=== PATIENT | female | born 1970 | race African-American/Black ===

== ENCOUNTER 2017-03-19 12:04 | Emergency (ER) | payer OTHER | END 2017-03-19 13:31 | disposition home or self-care (01) | LOC: SCSER 12:04 | DX: E86.0 Dehydration (principal); I10 Essential (primary) hypertension; J45.909 Unspecified asthma, uncomplicated; Z79.899 Other long term (current) drug therapy | CPT/HCPCS: 36415; 80048; 82306; 82607; 82728; 84425; 85027; 96360 ==

== ENCOUNTER 2017-06-16 08:24 | Inpatient (IN) | payer OTHER ==
[2017-06-16] MEDS ORDERED: Metoclopramide HCl 10 MG/2 ML VIAL ONE (09:13)
[2017-06-16] MEDS ORDERED: diphenhydrAMINE 50 MG/ML VIAL ONE (09:13)
[2017-06-16] MEDS ORDERED: Ketorolac Tromethamine 30 MG/ML VIAL ONE (09:13)
[2017-06-16 09:32] LABS: #Eosinphils 0.1 thou/uL (0.0-0.7); #Monocytes 0.4 thou/uL (0.11-0.59); #Neutrophils 2.2 thou/uL (1.40-6.50); %Basophils 0.9 % (0.0-1.0); %Eosinophils 2.9 % (0.0-10.0); %Monocytes 9.9 % (0.0-10.0); %Neutrophils 60.3 % (42.0-75.0); Hemoglobin 11.9 g/dL (12.0-16.0); Mean Corpuscular HGB CONC 31.9 g/dL (32.0-36.0); Mean Corpuscular Hemoglobin 29.4 pg (27.0-31.0); Mean Corpuscular Volume 92.1 fl (81.0-99.0); Mean Platelet Volume 7.4 fL (7.4-10.4); Platelet Count 272 thou/uL (130-400); RBC Distribution Width 12.2 % (11.5-14.5); Red Blood Cell (RBC) Count 4.04 mill/uL (4.20-5.40); White Blood Cell (WBC) Count 3.7 thou/uL (4.8-10.8)
[2017-06-16 09:53] LABS: ALT (SGPT) 13 U/L (8-55); AST (SGOT) 14 U/L (5-34); Albumin 3.8 g/dL (3.5-5.0); Alkaline Phosphatase 73 U/L (40-150); Anion Gap 7 mmol/L (10-20); BUN (Urea Nitrogen) 10 mg/dL (7.0-18.7); Bilirubin, Total 0.3 mg/dL (0.2-1.2); Calc. Creatinine Clearance 0 mL/min (70-130); Calcium 8.9 mg/dL (7.8-10.44); Carbon Dioxide 26 mmol/L (22-29); Chloride 111 mmol/L (98-107); Estimated GFR-MDRD Greater than 90; Globulin 2.6 g/dL (2.4-3.5); Glucose 106 mg/dL (70-105); Potassium 3.2 mmol/L (3.5-5.1); Protein, Total 6.4 g/dL (6.0-8.3); Sodium 141 mmol/L (136-145)
[2017-06-16 09:58] LABS: CKMB 1.1 ng/mL (0-6.6); Troponin I 0.011 ng/mL (< 0.028)
--- NOTE | 2017-06-16 10:07 | CT ---
CT BRAIN WITHOUT CONTRAST: Date: 06/16/17 HISTORY: Syncope. FINDINGS: Comparison made with exam of 10/23/16. No evidence of acute infarct, hemorrhage, midline shift, or abnormal extra-axial fluid collections ar e seen. The ventricular size is normal and the basilar cisterns are patent. The bony calvarium is int act. There is mucosal disease in the paranasal sinuses. IMPRESSION: No CT evidence of acute intracranial process. POS: [facility]
[2017-06-16] MEDS ORDERED: Potassium Chloride 20 MEQ TAB ONE (10:20)
[2017-06-16] MEDS ORDERED: Diazepam 5 MG TAB ONE (11:05)
[2017-06-16 13:26] VITALS: BMI 23.6
[2017-06-16] MEDS: Acetaminophen 325 MG TAB PO PRN (16:54)
[2017-06-16] MEDS ORDERED: UREA TOP SCH (18:00)
[2017-06-16] MEDS ORDERED: Potassium Chloride 20 MEQ TAB PO SCH (18:30)
[2017-06-16 18:41] LABS: Troponin I 0.016 ng/mL (< 0.028)
--- NOTE | 2017-06-16 19:17 | HP ---
CHIEF COMPLAINT: Syncope. PRIMARY CARE PHYSICIAN: Dr. Omi Singletary. HISTORY OF PRESENT ILLNESS: The patient is a very pleasant 47-year-old female with a history of rosa pernell bypass with significant complication, who presented to the ER with complaints of syncopal episode . The patient was brought in by EMS. The patient reports that she had a migraine for a while since the weekend and has been taking Aleve for pain. The patient said that she went to work; however, was not feeling well. The patient states that she does have nausea, but denies any vomiting or diarrhea or chest pain or chest pressure. She denies any blurry vision. The patient stated that next thing she remembers she was on the ground with everybody standing around her. The patient states that when she woke up, she knew where she was and she knew who people were. The patient states that this has never happened to her before. Denies any recent sick contacts. The patient states that she does hav e been having migraines for the past few years. She states normally in a month she will get 2-3 bout s of migraines and normally takes Aleve and sleeps, which relieves her migraines. The patient states that her headache is all around her head. She feels like a pressure-like sensation. Denies any nec k pain. Denies any nuchal rigidity. She states that her pain is sharp. PAST MEDICAL HISTORY: She has a history of hypertension and Munoz esophagitis. PAST SURGICAL HISTORY: She has had a gastric sleeve to Thad-en-Y. ALLERGIES: She has no known drug allergies. SOCIAL HISTORY: She denies any smoking or alcohol use. REVIEW OF SYSTEMS: The patient does complain of nausea and some pain; however, the remaining review of systems was negative. PHYSICAL EXAMINATION: VITAL SIGNS: Include 98.4, 69, 16, 100% on room air, 141/97. GENERAL: The patient is in the stretcher, is awake, however, appears drowsy. She states that she ju st got some medication. HEENT: Normocephalic, atraumatic. No lymphadenopathy. Pupils are equal, reactive to light. She land s no pain around her temporal area. CARDIOVASCULAR: S1, S2 present. No murmurs, rubs or gallops. LUNGS: Clear to auscultation. ABDOMEN: Soft. She does have significant pain on her left upper and lower quadrant. EXTREMITIES: No edema. MEDICATIONS: The patient states that she takes amlodipine 5 mg b.i.d., thiamine 1 pill daily, vitami n D3 daily, and urea 1 unit topical. LABORATORY DATA: Hematology is 3.7, hemoglobin of 11.9, hematocrit of 37.2, platelets of 272. Chemi stry: Sodium of 141, potassium of 3.2, chloride of 111, creatinine 0.8. LFTs were normal. Initial troponins were negative. ASSESSMENT AND PLAN: The patient is a very pleasant 47-year-old female who initially presented to [facility] for syncope. 1. Syncope, could be neurogenic versus cardiogenic. We will try and see if we can get orthostatics on this patient. We will get an echocardiogram. I will consult Neurology, could be a syncopal episo de due to her migraines. Her EKG did not happen to have any acute process noted. Labs did not indic ate any abnormality except for low potassium. We will continue to monitor. 2. Hypertension. We will continue her Norvasc. 3. We will add SCDs for DVT prophylaxis.
[2017-06-16] MEDS: Amlodipine 5 MG TAB PO SCH (20:44)
[2017-06-16] MEDS: Famotidine/PF 20 mg/2ml Vial SLOW IVP SCH (20:44)
--- NOTE | 2017-06-16 20:52 | CON ---
DATE OF CONSULTATION: 06/16/2017 REFERRING PHYSICIAN: Tracy Hyatt MD REASON FOR CONSULTATION: Migraine and syncope. HISTORY OF PRESENT ILLNESS: Ms. Mejia is a pleasant 47-year-old - [place] female who has been consulted for evaluation of migraine and syncope. History is obtained from the patient who is a very good historian. The patient reports that she has longstanding history of migraine headaches. She has migraine flareup 1 to 3 times per month. She notes that on Friday she started having headache that was located in the holocranial region. It was pressure in quality, moderate to severe intensity. She had nausea, photophobia , phonophobia, blurry vision, dizziness, and lightheadedness with the headaches. As these headaches were not improving, she decided to present to the [facility] for further evaluation. She states that currently she does not take any medications for breakthrough headaches. She has also never been placed on any preventive therapy for migraine headaches. PAST MEDICAL HISTORY: Significant for hypertension, Munoz's esophagus and migraine headaches, intractable. PAST SURGICAL HISTORY: Significant for gastric sleeve surgery. SOCIAL HISTORY: She denies smoking, alcohol use, or illicit drug use. CURRENT MEDICATIONS: Please review MAR. ALLERGIES: No known drug allergies. REVIEW OF SYSTEMS: As mentioned above in the HPI, otherwise negative. PHYSICAL EXAMINATION: VITAL SIGNS: Blood pressure 141/87, pulse of 90, temperature of 98.5, respirations of 16, and O2 sats of 100% on room air. GENERAL: Well-developed, well-nourished -[place] female, in no apparent distress. RESPIRATORY: Clear to auscultation bilaterally. CARDIOVASCULAR: Regular rate and rhythm. NEUROLOGIC: Mental status: The patient is awake, alert, oriented x3. Speech and language: Fluent speech. Cranial nerves: Pupils are 3 mm and reactive. Visual morley are intact. External muscles are intact. No nystagmus is noted. Face is symmetric. Tongue and uvula are midline. Motor exam showed normal tone and bulk with 5/5 strength in both lower extremities. Sensory: Sensation is intact and symmetric. Deep tendon reflexes 2+ reflexes in both upper and lower extremities. Babinski: Plantar responses flexion bilaterally. Coordination intact to [id number] tapping bilaterally. LABORATORY DATA: Reviewed, which included CBC, CMP, which is significant for WBC of 3.7, potassium of 3.2, otherwise unremarkable. IMAGING STUDIES: CT head without contrast was reviewed, which showed no acute intracranial abnormality. IMPRESSION: 1. Common migraine, intractable. 2. Hypertension. ASSESSMENT AND PLAN: Ms. Mejia is a pleasant 47-year-old -[place] female, who presented with a severe headache of 3 days duration. Based on the description of her spells, this is likely common migraine. At this time, I will recommend giving her Depacon IV 500 mg q.12 hours for a total of 2 doses. I would also recommend adding Toradol 30 mg with Phenergan 25 mg once every 6 hours. Continue supportive care. Continue current medical management. MTDD
[2017-06-16] MEDS: Valproate Sodium 500 MG in Sodium Chloride 0.9% 100 ML IVPB SCH (23:37)
[2017-06-17] MEDS: Promethazine HCl 25 MG in Sodium Chloride 0.9% 50 ML IVPB SCH ×3 (01:05→12:07)
[2017-06-17] MEDS: Ketorolac Tromethamine 30 MG/ML VIAL IVP SCH ×3 (01:05→12:06)
[2017-06-17 06:27] LABS: Hemoglobin 12.1 g/dL (12.0-16.0); Mean Corpuscular HGB CONC 31.7 g/dL (32.0-36.0); Mean Corpuscular Hemoglobin 29.9 pg (27.0-31.0); Mean Corpuscular Volume 94.2 fl (81.0-99.0); Mean Platelet Volume 7.6 fL (7.4-10.4); Platelet Count 275 thou/uL (130-400); RBC Distribution Width 12.3 % (11.5-14.5); Red Blood Cell (RBC) Count 4.05 mill/uL (4.20-5.40); White Blood Cell (WBC) Count 4.5 thou/uL (4.8-10.8)
[2017-06-17 06:46] LABS: ALT (SGPT) 14 U/L (8-55); AST (SGOT) 14 U/L (5-34); Albumin 3.3 g/dL (3.5-5.0); Alkaline Phosphatase 88 U/L (40-150); Anion Gap 6 mmol/L (10-20); BUN (Urea Nitrogen) 14 mg/dL (7.0-18.7); Bilirubin, Total 0.2 mg/dL (0.2-1.2); Calc. Creatinine Clearance 94 mL/min (70-130); Calcium 8.3 mg/dL (7.8-10.44); Carbon Dioxide 25 mmol/L (22-29); Chloride 111 mmol/L (98-107); Estimated GFR-MDRD Greater than 90; Globulin 2.6 g/dL (2.4-3.5); Glucose 91 mg/dL (70-105); Protein, Total 5.9 g/dL (6.0-8.3); Sodium 138 mmol/L (136-145)
[2017-06-17 06:51] LABS: Band 1 % (5-11); Eosinophils 3 % (0-10); Lymphocytes 31 % (21-51); MDiff Complete? YES; Monocytes 7 % (0-10); Neutrophil 58 % (42-75)
[2017-06-17] MEDS: Famotidine/PF 20 mg/2ml Vial SLOW IVP SCH ×2 (08:09→20:30)
[2017-06-17] MEDS: Cholecalciferol (Vitamin D3) 400 UNITS TAB PO SCH (08:09)
[2017-06-17] MEDS: Enoxaparin Sodium 30 MG/0.3 ML SYRINGE SC SCH (08:09)
[2017-06-17] MEDS: Amlodipine 5 MG TAB PO SCH ×2 (08:10→20:27)
[2017-06-17] MEDS: Valproate Sodium 500 MG in Sodium Chloride 0.9% 100 ML IVPB SCH (10:55)
[2017-06-17] MEDS ORDERED: Metoclopramide HCl 10 MG/2 ML VIAL IVP PRN (14:46)
[2017-06-17] MEDS ORDERED: Dexamethasone 10 MG in Sodium Chloride 0.9% 50 ML IVPB PRN (14:48)
--- NOTE | 2017-06-17 16:10 | PDOC.PN ---
- Subjective Encounter Start Date: 06/17/17 Encounter Start Time: 13:00 Subjective: pt up in bed still has headache - Objective Resuscitation Status: Resuscitation Status FULL:Full Resuscitation Vital Signs & Weight: Vital Signs (12 hours) Temp Pulse Resp BP BP BP BP 06/17/17 11:47 98.8 F 87 18 121/73 118/76 128/71 06/17/17 08:10 81 121/78 06/17/17 08:00 98.3 F 81 14 121/78 Pulse Ox 06/17/17 11:47 95 06/17/17 08:10 06/17/17 08:00 96 Weight Weight 150 lb 9 oz I&O: 06/16/17 06/17/17 06/18/17 06:59 06:59 06:59 Intake Total 687 360 Balance 687 360 Result Diagrams: 06/17/17 06:14 06/17/17 06:14 Phys Exam - Physical Examination HEENT: PERRLA (pt has tenderness on palpation of both temporal area. ) Neck: no nodes Respiratory: no wheezing, no rales Cardiovascular: RRR Gastrointestinal: soft (mild tenderness on palpation of right and left side of abdomen area) Neurological: non-focal, normal sensation Dx/Plan (1) Syncope Code(s): R55 - SYNCOPE AND COLLAPSE Status: Acute Plan: echo ordered pending results. ct head negative. possible due to pain? (2) Migraine aura, persistent, intractable, with status migrainosus Code(s): G43.511 - PERST MIGRAINE AURA W/O CEREBRAL INFRC, NTRCT, W STAT MIGR Status: Acute Plan: neurology consulted. pt still has headache. will give decadrone 10mg iv and reglan. (3) Abdominal pain Code(s): R10.9 - UNSPECIFIED ABDOMINAL PAIN Status: Acute Plan: will get xray (4) UTI (urinary tract infection) Status: Acute Plan: pt states that she was suppose to get meds filled for uti. will get ua and put pt on cipro - Plan * .
[2017-06-17 18:41] LABS: Bilirubin Negative (Negative); Blood, Urine Negative (Negative); Clarity CLOUDY (Clear); Glucose, Urine (Dipstick) Negative (Negative); Leukocyte Small (Negative); Nitrite Positive (Negative); Protein, Urine (Dipstick) Negative (Neg-Trace); Specific Gravity, Urine 1.018 (1.002-1.036)
[2017-06-17 18:47] LABS: Bacteria/HPF 4+ HPF (None Seen); Hyaline Casts/LPF 0-3 HYALINE CAST LPF (0-3 Hyaline); RBC/HPF 0-3 HPF (0-3)
[2017-06-17] MEDS: Cipro 250 MG TAB PO SCH (20:27)
[2017-06-17] MEDS: Ketorolac Tromethamine 30 MG/ML VIAL IVP PRN (20:30)
[2017-06-17] MEDS ORDERED: traZODone HCl 50 MG TAB PO PRN (23:02)
[2017-06-18] MEDS: Ketorolac Tromethamine 30 MG/ML VIAL IVP PRN ×2 (01:33→11:41)
[2017-06-18] MEDS: diphenhydrAMINE 50 MG/ML VIAL IVP PRN ×2 (01:34→13:41)
[2017-06-18] MEDS: Cipro 250 MG TAB PO SCH ×2 (05:17→20:50)
[2017-06-18] MEDS: Amlodipine 5 MG TAB PO SCH ×2 (08:42→20:50)
[2017-06-18] MEDS: Enoxaparin Sodium 30 MG/0.3 ML SYRINGE SC SCH (08:43)
[2017-06-18] MEDS: Cholecalciferol (Vitamin D3) 400 UNITS TAB PO SCH (08:43)
[2017-06-18] MEDS: Famotidine/PF 20 mg/2ml Vial SLOW IVP SCH (08:44)
[2017-06-18] MEDS: oxyCODONE/Acetaminophen 5 mg/325 mg Tablet PO PRN ×2 (08:44→18:51)
[2017-06-18] MEDS: Acetaminophen 325 MG TAB PO PRN (11:43)
--- NOTE | 2017-06-18 14:19 | PDOC.PN ---
- Subjective Encounter Start Date: 06/18/17 Encounter Start Time: 10:30 Subjective: pt up in bed has her light on today, still has a headache - Objective Resuscitation Status: Resuscitation Status FULL:Full Resuscitation Vital Signs & Weight: Vital Signs (12 hours) Temp Pulse Resp BP BP Pulse Ox 06/18/17 12:00 99.3 F 89 18 116/72 98 06/18/17 08:42 94 141/80 H 06/18/17 08:00 98.3 F 94 18 141/80 H 100 06/18/17 03:37 98.4 F 82 18 112/73 98 Weight Weight 150 lb 9 oz I&O: 06/17/17 06/18/17 06/19/17 06:59 06:59 06:59 Intake Total 687 1607 240 Balance 687 1607 240 Result Diagrams: 06/17/17 06:14 06/17/17 06:14 Phys Exam - Physical Examination HEENT: PERRLA, moist MMs Neck: no nodes, no JVD Respiratory: no wheezing Cardiovascular: RRR, no significant murmur Gastrointestinal: soft, non-tender Musculoskeletal: no edema Neurological: non-focal Lymphatic: no nodes Dx/Plan (1) Syncope Code(s): R55 - SYNCOPE AND COLLAPSE Status: Acute Plan: ef of 50-55% no valvular problem. most likely her syncope was vasovagel from the pain. (2) Migraine aura, persistent, intractable, with status migrainosus Code(s): G43.511 - PERST MIGRAINE AURA W/O CEREBRAL INFRC, NTRCT, W STAT MIGR Status: Acute Plan: pt has received toradol/reglan/steroids/ still no relief. esr and crp negative. dispo when pt's headache is resolved (3) Abdominal pain Code(s): R10.9 - UNSPECIFIED ABDOMINAL PAIN Status: Acute Plan: mild to her left lower quadrant. will get kub. (4) UTI (urinary tract infection) Status: Acute - Plan * .
--- NOTE | 2017-06-18 15:34 | RAD ---
KUB: History: Abdominal pain. FINDINGS: Bowel gas pattern is nonobstructed. Surgical suture lines are seen within the left upper quadrant. Th ere are multiple phleboliths in the lower pelvis. There is degenerative changes of both hips, right g reater than left. No acute fracture or subluxation is noted. IMPRESSION: No definite acute abnormality. POS: [facility]
[2017-06-18] MEDS ORDERED: Promethazine HCl 25 MG/ML VIAL SLOW IVP PRN (18:02)
[2017-06-18] MEDS: Famotidine 20 MG TAB PO SCH (20:50)
[2017-06-18] MEDS: Topiramate 25 MG TAB PO SCH (20:50)
[2017-06-18] MEDS: Fioricet 325/50/40 mg Tablet PO PRN (20:51)
[2017-06-19] MEDS: diphenhydrAMINE 50 MG/ML VIAL IVP PRN (00:22)
[2017-06-19] MEDS: oxyCODONE/Acetaminophen 5 mg/325 mg Tablet PO PRN (00:22)
[2017-06-19] MEDS: Cipro 250 MG TAB PO SCH (05:50)
[2017-06-19] MEDS: Enoxaparin Sodium 30 MG/0.3 ML SYRINGE SC SCH (11:03)
[2017-06-19] MEDS: Cholecalciferol (Vitamin D3) 400 UNITS TAB PO SCH (11:03)
[2017-06-19] MEDS: Topiramate 25 MG TAB PO SCH (11:04)
[2017-06-19] MEDS: Famotidine 20 MG TAB PO SCH (11:04)
[2017-06-19] MEDS: Amlodipine 5 MG TAB PO SCH (11:04)
[2017-06-19] MEDS: Fioricet 325/50/40 mg Tablet PO PRN (11:05)
--- NOTE | 2017-06-19 11:22 | PRG ---
DATE OF SERVICE: 06/18/2017 SUBJECTIVE: Ms. Mejia is a pleasant 47-year-old female admitted with intractable headache. She reports that she had some improvement in her headache after receiving IV Depacon, Toradol and Phenergan; however, after its discontinuation of her headaches have returned. Since that time she has been receiving Benadryl, Decadron, Reglan and Toradol which helps some, but continues to have headaches that are continuous. She feels fatigued and tired. She has photophobia with the headaches. PHYSICAL EXAMINATION: VITAL SIGNS: Blood pressure of 112/68, pulse of 79, temperature 98.6, respirations of 16, O2 sats of 100% on room air. GENERAL: Well-developed, well-nourished female in no apparent distress. RESPIRATORY: Clear to auscultation bilaterally. CARDIOVASCULAR: Regular rate and rhythm. NEUROLOGICAL: Essentially unchanged. IMPRESSION: Intractable migraine. Jackie Chung is a pleasant 47-year-old female who presented with the severe intractable migraine. She has received Toradol, Phenergan, Depacon, Benadryl, Reglan, and Decadron without much improvement. At this time, I would restart her on Topamax 25 mg b.i.d. If her symptoms improve she is okay to be discharged to home from a neurological standpoint. She will follow up in my clinic in 4-6 weeks post-discharge. Thank you for your consultation. DG
[2017-06-19 12:05] VITALS: BP 115/74; TEMP 97.9
--- NOTE | 2017-06-19 17:25 | DIS ---
DATE OF ADMISSION: 06/16/2017 DATE OF DISCHARGE: 06/19/2017 ADMITTING DIAGNOSIS: Acute syncope. DISCHARGE DIAGNOSIS: Intractable headache, likely common migraine. SECONDARY DIAGNOSES 1. Hypertension. 2. History of gastroesophageal reflux disease with Munoz's esophagus. CONSULTANTS: Involved in the care is Dr. Karuna Aviles. INVESTIGATIONS DURING THIS ADMISSION: A CT of the head was negative for any intracranial hemorrhage and echocardiogram was showing good ejection fraction of 55-60% and abdominal x-ray was unremarkable. HISTORY OF PRESENT ILLNESS AND HOSPITAL COURSE: In brief, this is a 47-year-old young -[place] female with a history of gastric bypass with significant complications, presented to the ER with c omplaint of syncopal episode. The patient report that she had migraine for a while and on the d she was taking Aleve for pain and the patient said she went to work and was not feeling well, and s he had severe headache and lot of nausea or vomiting. No blurry vision. The patient states the next thing she remembers was she was on the ground and with everybody standing around her. The patient s tates that she woke up and she knew where she was, and she was advised to come to the ER. When she c maribel to the ER, she had a thorough evaluation with a CT of the head, which was unremarkable and now th e patient was having persistent headaches and she was seen by Neurology and started on multiple medic ation regimens, initially with the Florinef, which did not relieve any pain and was started on Torado l with Phenergan. The pain was 9/10 intensity, so the patient was started on Topamax 25 mg p.o. opal y and slowly increase to 25 mg p.o. b.i.d. As the pain level has come down to 7/10 and the patient w as suggested to follow up with Neurology as outpatient. She was discharged home in stable condition and if the patient headache return back, I advised her to stay back from work on Friday and take re st till Friday. The patient agreed to the plan and she was discharged home in stable condition. PHYSICAL EXAMINATION: On day of discharge. VITAL SIGNS: Blood pressures are 150/74, heart rate is 84, respiratory rate is 16, saturation 98%. GENERAL: The patient is moderately built and moderately nourished, does not appear in acute distress . CARDIOVASCULAR: S1, S2 normal. No murmurs, rubs or gallops. LUNGS: Bilateral air entry was equal. No wheezing, no crackles. ABDOMEN: Soft, nontender, no guarding, no rebound tenderness. Bowel sounds normal. DISCHARGE MEDICATIONS: 1. Amlodipine. 2. Cholecalciferol. 3. Thiamine. 4. Urea. 5. Topamax 25 mg p.o. b.i.d. DISCHARGE INSTRUCTIONS: Continue activity as tolerated. Advised to follow up with Neurology, Dr. Devon chi in 1 week, so the Topamax could be slowly increased and if any alternative medication needs to be added, it should be done by his Neurology. Activity as tolerated as stated above. His diet, continue with the general diet. Dictating physician, Sree Earl has spent 35 minutes of this patient on the day of discharge.
--- NOTE | 2017-07-05 17:34 | EKG ---
Test Reason : Blood Pressure : / mmHG Vent. Rate : 072 BPM Atrial Rate : 072 BPM P-R Int : 174 ms QRS Dur : 094 ms QT Int : 400 ms P-R-T Axes : 065 018 038 degrees QTc Int : 438 ms Normal sinus rhythm Normal ECG Confirmed by ANGELICA PARRY, DEBRA ([id number]), video news editor KAREEM BENSON ([id number]) on 07/05/2017 5:33:30 PM Referred By: Confirmed By:DEBRA DOMINGUEZ MD
== END 2017-06-19 13:50 | disposition home or self-care (01) | DRG 103 ==
LOC: ERS 08:24 → 2SE 11:39
PROVIDERS: ADMIT Internal Medicine; ATTEND Internal Medicine
DX: G43.019 Migraine without aura, intractable, without status migrainosus (principal); F41.9 Anxiety disorder, unspecified; N39.0 Urinary tract infection, site not specified; H53.149 Visual discomfort, unspecified; R55 Syncope and collapse; I10 Essential (primary) hypertension; Z98.84 Bariatric surgery status; K21.9 Gastro-esophageal reflux disease without esophagitis; G43.511 Persistent migraine aura without cerebral infarction, intractable, with status migrainosus; K22.70 Barrett's esophagus without dysplasia
CPT/HCPCS: 36415; 70450; 74018; 80053; 81001; 82553; 84484; 85007; 85025; 85027; 85652; 86140; 93005; 93306; 96361; 96374; 96375; A4216; J1100; J1200; J1650; J1885; J2550; J2765; J7050; S0028

== ENCOUNTER 2018-11-17 20:12 | Emergency (ER) | payer OTHER ==
[2018-11-17] MEDS ORDERED: Adacel (T-DAP) 0.5 ML SYRINGE ONE (22:17)
[2018-11-17 22:30] LABS: #Eosinphils 0.3 thou/uL (0.0-0.7); #Lymphocytes 1.7 thou/uL (1.20-3.40); #Monocytes 0.7 thou/uL (0.11-0.59); #Neutrophils 3.6 thou/uL (1.40-6.50); %Basophils 0.5 % (0.0-1.0); %Eosinophils 4.7 % (0.0-10.0); %Lymphocytes 26.8 % (21.0-51.0); %Monocytes 10.6 % (0.0-10.0); %Neutrophils 57.4 % (42.0-75.0); Hemoglobin 10.7 g/dL (12.0-16.0); Mean Corpuscular HGB CONC 30.3 g/dL (32.0-36.0); Mean Corpuscular Hemoglobin 26.9 pg (27.0-31.0); Mean Corpuscular Volume 88.8 fL (78.0-98.0); Mean Platelet Volume 8.1 fL (7.4-10.4); Platelet Count 282 thou/uL (130-400); RBC Distribution Width 12.8 % (11.5-14.5); Red Blood Cell (RBC) Count 3.97 mill/uL (4.20-5.40); White Blood Cell (WBC) Count 6.2 thou/uL (4.8-10.8)
--- NOTE | 2018-11-17 22:33 | RAD ---
EXAM: Left foot: Previews INDICATIONS: Injury. Foreign body. COMPARISON: None. FINDINGS: No osseous abnormality. No soft tissue radiopaque foreign body identified. IMPRESSION: No acute finding
[2018-11-17 22:49] LABS: ALT (SGPT) 16 U/L (8-55); AST (SGOT) 20 U/L (5-34); Albumin 3.7 g/dL (3.5-5.0); Alkaline Phosphatase 90 U/L (40-150); Anion Gap 11 mmol/L (10-20); BUN (Urea Nitrogen) 13 mg/dL (7.0-18.7); Bilirubin, Total 0.3 mg/dL (0.2-1.2); CK (CPK) 207 U/L (29-168); Calc. Creatinine Clearance 0 mL/min (70-130); Calcium 8.6 mg/dL (7.8-10.44); Carbon Dioxide 25 mmol/L (22-29); Chloride 107 mmol/L (98-107); Estimated GFR-MDRD 69; Globulin 2.8 g/dL (2.4-3.5); Glucose 84 mg/dL (70-105); Potassium 3.6 mmol/L (3.5-5.1); Protein, Total 6.5 g/dL (6.0-8.3); Sodium 139 mmol/L (136-145)
[2018-11-17 22:50] LABS: BHCG - Serum Negative (NEGATIVE); Pregs Control Background? CLEAR/WHITE (CLR/WHITE); Pregs Control Bar Appear? YES (CONTROL BAR)
[2018-11-17] MEDS ORDERED: Ondansetron PF 4 MG/2 ML Vial ONE (22:56)
[2018-11-17] MEDS ORDERED: Pantoprazole 40 MG VIAL ONE (22:56)
[2018-11-17 23:48] LABS: Bilirubin Negative (Negative); Blood, Urine Negative (Negative); Clarity Clear (Clear); Glucose, Urine (Dipstick) Normal (Negative); Leukocyte Negative Leu/uL (Negative); Nitrite Negative (Negative); Protein, Urine (Dipstick) Negative (Neg-Trace); Urobilinogen Normal mg/dL (Less than 2)
== END 2018-11-18 00:57 | disposition home or self-care (01) ==
LOC: ERS 20:12
DX: M79.18 Myalgia, other site (principal); R19.7 Diarrhea, unspecified; M79.672 Pain in left foot; I10 Essential (primary) hypertension; J45.909 Unspecified asthma, uncomplicated; F41.9 Anxiety disorder, unspecified; Z79.899 Other long term (current) drug therapy
CPT/HCPCS: 36415; 80053; 81003; 82550; 83605; 84484; 84703; 85025; 87086; 90471; 90715; 93005; 96361; 96372; 96374; 96375; C9113; J0500; J2405

== ENCOUNTER 2019-09-24 12:05 | Outpatient (CLI) | payer OTHER ==
--- NOTE | 2019-09-24 15:27 | RAD ---
RIGHT SHOULDER TWO VIEWS: 09/24/19 COMPARISON: None. HISTORY: Pain. FINDINGS: No widening of the acromioclavicular or coracoclavicular interspace. No displaced fracture seen. IMPRESSION: No acute osseous abnormality. POS: [facility]
--- NOTE | 2019-09-24 15:28 | RAD ---
TWO VIEWS OF THE LEFT WRIST: 09/24/19 COMPARISON: None. HISTORY: Pain. FINDINGS: Alignment appears normal on the lateral view. No displaced fracture or dislocation. IMPRESSION: No acute fracture or dislocation. If symptoms persist, follow-up in 7 -10 days with a full left wrist series including scaphoid views advised. POS: [facility]
== END 2019-09-24 12:06 | disposition home or self-care (01) ==
LOC: BICRAD 12:05
PROVIDERS: ATTEND Family Medicine
DX: M25.511 Pain in right shoulder (principal); M25.532 Pain in left wrist
CPT/HCPCS: 36415; 80053; 80061; 85025

== ENCOUNTER 2019-10-06 14:18 | Outpatient (CLI) | payer OTHER ==
--- NOTE | 2019-10-06 15:34 | MMO ---
Bilateral MAMMO Bilat Screen [facility]. CLINICAL HISTORY: Patient is 49 years old and is seen for screening. The patient has no family history of breast cancer. The patient has no personal history of cancer. The patient has a history of bilateral Breast reduction in 2003 - benign. VIEWS: The views performed were: bilateral craniocaudal with tomosynthesis and bilateral mediolateral oblique with tomosynthesis. FILMS COMPARED: The present examination has been compared to prior imaging studies performed at [facility] on 02/04/2012 and 03/15/2016. This study has been interpreted with the assistance of computer-aided detection. MAMMOGRAM FINDINGS: There are scattered fibroglandular densities. There are no suspicious masses, suspicious calcifications, or new areas of architectural distortion. IMPRESSION: THERE IS NO MAMMOGRAPHIC EVIDENCE OF MALIGNANCY. A ROUTINE FOLLOW-UP MAMMOGRAM IN 1 YEAR IS RECOMMENDED. THE RESULTS OF THIS EXAM WERE SENT TO THE PATIENT. ACR BI-RADS Category 1 - Negative MAMMOGRAPHY NOTE: 1. A negative mammogram report should not delay a biopsy if a dominant of clinically suspicious mass is present. 2. Approximately 10% to 15% of breast cancers are not detected by mammography. 3. Adenosis and dense breasts may obscure an underlying neoplasm. Reported by: TISH BRANHAM MD Electonically Signed: [id number]
== END 2019-10-06 14:19 | disposition home or self-care (01) ==
LOC: BICMAMMO 14:18
PROVIDERS: ATTEND Family Medicine
DX: Z12.31 Encounter for screening mammogram for malignant neoplasm of breast (principal); Z98.890 Other specified postprocedural states
CPT/HCPCS: 77063; 77067

== ENCOUNTER 2020-10-06 10:28 | Outpatient (CLI) | payer MEDICAID, OTHER | END 2020-10-06 10:29 | disposition home or self-care (01) | LOC: BICMAMMO 10:28 | PROVIDERS: ATTEND Family Medicine | DX: Z12.31 Encounter for screening mammogram for malignant neoplasm of breast (principal); Z91.89 Other specified personal risk factors, not elsewhere classified | CPT/HCPCS: 77067 ==

== ENCOUNTER 2020-11-02 07:43 | Outpatient (CLI) | payer OTHER | END 2020-11-02 07:44 | disposition home or self-care (01) | LOC: BICCT 07:43 | PROVIDERS: ATTEND Internal Medicine Gastroenterology | DX: K63.89 Other specified diseases of intestine (principal); N28.9 Disorder of kidney and ureter, unspecified; N83.8 Other noninflammatory disorders of ovary, fallopian tube and broad ligament; D73.4 Cyst of spleen; Z98.890 Other specified postprocedural states | CPT/HCPCS: 74177 ==

== ENCOUNTER 2020-12-22 08:09 | Outpatient (CLI) | payer OTHER, MEDICAID | END 2020-12-22 08:10 | disposition home or self-care (01) | LOC: BICULT 08:09 | PROVIDERS: ATTEND Physician Assistant Medical | DX: K63.89 Other specified diseases of intestine (principal); R93.5 Abnormal findings on diagnostic imaging of other abdominal regions, including retroperitoneum; N83.202 Unspecified ovarian cyst, left side; N83.201 Unspecified ovarian cyst, right side | CPT/HCPCS: 76856; 93976 ==

== ENCOUNTER 2021-05-12 10:23 | Emergency (ER) | payer OTHER ==
[2021-05-12 18:35] LABS: SARS-CoV-2 PCR by NAA DETECTED (NotDetected)
== END 2021-05-12 12:28 | disposition home or self-care (01) ==
LOC: ERS 10:23
DX: U07.1 COVID-19 (principal)
CPT/HCPCS: 99283; U0003; U0005

== ENCOUNTER 2022-04-01 12:14 | Outpatient (CLI) | payer OTHER | END 2022-04-01 12:15 | disposition home or self-care (01) | LOC: BICMAMMO 12:14 | PROVIDERS: ATTEND Family Medicine | DX: Z12.31 Encounter for screening mammogram for malignant neoplasm of breast (principal); Z98.890 Other specified postprocedural states | CPT/HCPCS: 77063; 77067 ==

== ENCOUNTER 2022-05-06 07:24 | Day surgery (SDC) | payer OTHER ==
[2022-05-03 12:52] VITALS: BMI 26.4
[2022-05-06 08:04] LABS: Hemoglobin A1c 5.6 % (4.0-6.0)
[2022-05-06 08:18] LABS: Cardiac Risk 2.2 (Less than 4.5)
[2022-05-06 08:34] VITALS: BP 147/95; TEMP 99
[2022-05-06 08:39] LABS: HIV (1/2) Antibody/Antigen Non-Reactive (NonReactive); HIV 1/2 INDEX 0.09 S/CO (<1.00)
[2022-05-06 09:31] LABS: CSF Source CSF; Clarity Clear (Clear); Tube # 4
[2022-05-06 10:12] LABS: CSF, Glucose 62 mg/dl (40-70); CSF, Protein 28 mg/dL (15-40)
[2022-05-06 14:05] LABS: Color Of CSF Supernatant COLORLESS (Colorless); Tube # 1; Unspun CSF Color COLORLESS (Colorless)
== END 2022-05-06 10:05 | disposition home or self-care (01) ==
LOC: RAD 07:24
PROVIDERS: ATTEND Psychiatry & Neurology Neurology
PROC: 00JU3ZZ Inspection of Spinal Canal, Percutaneous Approach (ICD-10-PCS; principal; 2022-05-06)
DX: G43.009 Migraine without aura, not intractable, without status migrainosus (principal); Z79.82 Long term (current) use of aspirin; Z79.899 Other long term (current) drug therapy
CPT/HCPCS: 62270; 80061; 82945; 83036; 84157; 86592; 87389; 89051

== ENCOUNTER 2024-02-13 13:30 | Outpatient (CLI) | payer OTHER | END 2024-02-13 13:31 | disposition home or self-care (01) | LOC: BICMAMMO 13:30 | PROVIDERS: ATTEND Family Medicine | DX: Z12.31 Encounter for screening mammogram for malignant neoplasm of breast (principal); Z98.890 Other specified postprocedural states | CPT/HCPCS: 77063; 77067 ==

== ENCOUNTER 2024-04-08 11:10 | Outpatient (CLI) | payer BC, OTHER | END 2024-04-08 11:11 | disposition home or self-care (01) | LOC: ULT 11:10 | PROVIDERS: ATTEND Family Medicine | DX: R10.9 Unspecified abdominal pain (principal); E04.1 Nontoxic single thyroid nodule; N28.1 Cyst of kidney, acquired | CPT/HCPCS: 76536; 76770 ==